=== PATIENT | male | born 1970 | race Caucasian/White ===

== ENCOUNTER → 2016-10-09 | Outpatient (CLI) | payer BC | END | disposition short-term general hospital (02) | LOC: CLORTH 12:04 | DX: M75.102 Unspecified rotator cuff tear or rupture of left shoulder, not specified as traumatic (principal); M75.101 Unspecified rotator cuff tear or rupture of right shoulder, not specified as traumatic; M19.012 Primary osteoarthritis, left shoulder; M19.011 Primary osteoarthritis, right shoulder ==

== ENCOUNTER → 2016-11-20 | Outpatient (CLI) | payer BC | END | disposition short-term general hospital (02) | LOC: CLORTH 12:46 | DX: Z47.89 Encounter for other orthopedic aftercare (principal) ==